=== PATIENT | male | born 2000 | race Caucasian/White ===

== ENCOUNTER 2024-02-10 09:09 | Emergency (ER) | payer SELFPAY ==
[~2024-02-10] VITALS: Ht 165.1 cm; Wt 75.0 kg
[2024-02-10 09:22] VITALS: BP 128/76; PULSE 16; RESP 16; TEMP 98; O2SAT 96
[2024-02-10] MEDS ORDERED: PRED-554 PO (10:24)
[2024-02-10] MEDS ORDERED: IBUP-1492 PO (10:24)
[2024-02-10] MEDS ORDERED: VALA100026 PO (10:24)
[2024-02-10] MEDS ORDERED: HYDR-4062 PO (10:24)
[2024-02-10] MEDS: IBUPROFEN 600 MG TABLET PO ONE (11:08)
[2024-02-10] MEDS: ValACYclovir HCL 500 MG TABLET PO ONE (11:08)
[2024-02-10] MEDS: PredniSONE 20 MG TABLET PO ONE (11:09)
== END 2024-02-10 11:20 | disposition home or self-care (01) ==
LOC: EMS 09:19
DX: B02.21 Postherpetic geniculate ganglionitis (principal); R21 Rash and other nonspecific skin eruption; G47.9 Sleep disorder, unspecified
CPT/HCPCS: 99284; J7512